=== PATIENT | female | born 1980 | race Caucasian/White ===

== ENCOUNTER 2023-09-20 06:42 | Outpatient (RCR) | payer OTHER, SELFPAY | END 2023-09-20 23:59 | disposition home or self-care (01) | LOC: RST 06:42 | PROVIDERS: ATTENDING PHYSICIAN Otolaryngology; FAMILY PHYSICIAN Nurse Practitioner Adult Health | DX: J38.2 Nodules of vocal cords (principal); R49.0 Dysphonia | CPT/HCPCS: 92507 ==

== ENCOUNTER 2023-10-04 08:05 | Outpatient (RCR) | payer OTHER, SELFPAY | END 2023-10-04 08:54 | disposition home or self-care (01) | LOC: RST 08:05 | PROVIDERS: ATTENDING PHYSICIAN Otolaryngology; FAMILY PHYSICIAN Nurse Practitioner Adult Health | DX: J38.2 Nodules of vocal cords (principal); R49.0 Dysphonia | CPT/HCPCS: 92507 ==